=== PATIENT | female | born 1975 | race Two or more races ===

== ENCOUNTER 2017-06-25 06:38 | Emergency (ER) | payer OTHER ==
[~2017-06-25] VITALS: Ht 160 cm; Wt 108.9 kg
[2017-06-25] MEDS ORDERED: LORAZEPAM 2 MG/1 ML VIAL ONE (07:11)
[2017-06-25] MEDS ORDERED: LORAZEPAM 2 MG/1 ML VIAL IV ONE (07:30)
[2017-06-25 07:31] LABS: BASOPHILS # (AUTO) 0.1 K/uL (0.0-8.0); BASOPHILS % (AUTO) 0.6 % (0.0-2.0); EOSINOPHILS # (AUTO) 0.1 K/uL (0.0-0.7); EOSINOPHILS % (AUTO) 1.4 % (0.0-7.0); HEMATOCRIT 40.9 % (31.2-41.9); HEMOGLOBIN 13.7 g/dL (10.9-14.3); LYMPHOCYTES # (AUTO) 2.4 K/uL (20.0-40.0); LYMPHOCYTES % (AUTO) 26.5 % (20.5-51.5); MEAN CORPUSCULAR HEMOGLOBIN 28.4 uug (24.7-32.8); MEAN CORPUSCULAR HGB CONC 33 g/dL (32.3-35.6); MONOCYTES # (AUTO) 0.7 K/uL (2.0-10.0); MONOCYTES % (AUTO) 7.4 % (0.0-11.0); NEUTROPHILS # (AUTO) 5.8 K/uL (1.8-8.9); NEUTROPHILS % (AUTO) 64.1 % (38.5-71.5); PLATELET COUNT (AUTO) 262 K/uL (179-408); RED BLOOD CELL COUNT(AUTO) 4.81 MIL/uL (3.63-4.92)
[2017-06-25 07:41] LABS: CREATININE 0.9 mg/dL (0.6-1.3)
[2017-06-25 07:42] LABS: *BILIRUBIN,URIN NEGATIVE (NEGATIVE); *BLOOD, URINE Trace-lysed (NEGATIVE); *CLARITY,URINE CLEAR (CLEAR); *COLOR,URINE YELLOW (YELLOW); *KETONES,URINE NEGATIVE (NEGATIVE); *PROTEIN,URINE NEGATIVE (NEGATIVE); *UROBILINOGEN,URINE 0.2 E.U./dl (NORMAL); LEUKOCYTE ESTERASE ,URINE NEGATIVE (NEGATIVE); NITRITE, URINE NEGATIVE (NEGATIVE); UGLUCOSE NEGATIVE (NEGATIVE)
[2017-06-25 07:48] LABS: BACTERIA,URINE FEW /HPF (NONE SEEN); RBC,URINE 0-3 /HPF (0-3); SQUAMOUS EPITHELIAL CELL,UR FEW /HPF (NONE SEEN); WBC,URINE 0-3 /HPF (0-3)
[2017-06-25 07:53] LABS: BILIRUBIN,DIRECT 0.1 mg/dL (0.0-0.2); BILIRUBIN,TOTAL 0.3 mg/dL (0.2-1.0); TOTAL PROTEIN, SERUM 8.2 g/dL (6.4-8.2)
--- NOTE | 2017-06-25 10:08 | NUR ---
Patient discharged to home in stable conditon. Written and verbal after care instructions given. Patient verbalizes understanding of instructions.PT SAYS FEELS BETTER, PT WALKS IN STEADY GAIT, ACCOMPANIED BY , PT NOT DRIVING, COPY OF ALL THE STUDIES PROVIDED F OR PT TO FOLLOW UP.
[2017-06-25 10:10] VITALS: BP 139/77
== END 2017-06-25 10:10 | disposition home or self-care (01) ==
LOC: ER 06:44
DX: R07.89 Other chest pain (principal); Z91.010 Allergy to peanuts
CPT/HCPCS: 36415; 71045; 80048; 80076; 81001; 83880; 84484 ×2; 84703; 85025; 85379; 85730; 93005; 99285; A4663; J2060; 70030-TC; J7030

== ENCOUNTER 2022-07-08 06:38 | Emergency (ER) | payer OTHER ==
[~2022-07-08] VITALS: Ht 160 cm; Wt 95.3 kg
[2022-07-08] MEDS ORDERED: MORPHINE SULFATE 4 MG/1 ML DISP.SYRIN IV ONE (07:00)
[2022-07-08] MEDS ORDERED: FAMOTIDINE 20 MG TABLET PO ONE (07:00)
[2022-07-08] MEDS ORDERED: IV NORMAL SALINE 500 ML BAG IV ONE (07:00)
[2022-07-08] MEDS ORDERED: MAG HYDROX/AL HYDROX/SIMETH 30 ML LIQUID UDC PO ONE (07:00)
[2022-07-08] MEDS ORDERED: FAMO-132 PO (07:00)
[2022-07-08] MEDS ORDERED: FAMOTIDINE 20 MG TABLET ONE (07:05)
[2022-07-08] MEDS ORDERED: MAG HYDROX/AL HYDROX/SIMETH 30 ML LIQUID UDC ONE (07:05)
[2022-07-08] MEDS ORDERED: MORPHINE SULFATE 4 MG/1 ML DISP.SYRIN ONE (07:06)
--- NOTE | 2022-07-08 07:16 | NUR ---
Endorsed to Skye CORREA
[2022-07-08 07:17] LABS: HEMATOCRIT 40.8 % (31.2-41.9); MEAN CORPUSCULAR HEMOGLOBIN 28.3 uug (24.7-32.8); MEAN CORPUSCULAR VOLUME 85.6 fL (75.5-95.3); PLATELET COUNT (AUTO) 250 K/uL (179-408)
--- NOTE | 2022-07-08 07:22 | NUR ---
Received endorsedment from Keily CORREA.
--- NOTE | 2022-07-08 07:25 | NUR ---
Pt arrived in the ED with c/o upper abdominal pain, 11/04. Pt stated that it has been going on for 1 month, exhibiting loose bowel movements everyday. Denies headache, n/v, dizziness, hematochezia and hematuria. Seen by Dr. Ridley for MSE.
[2022-07-08 07:35] LABS: BILIRUBIN,TOTAL 0.4 mg/dL (0.2-1.0); CREATININE 0.7 mg/dL (0.6-1.3); POTASSIUM 3.7 mmol/L (3.5-5.1)
[2022-07-08 08:46] LABS: *BILIRUBIN,URIN NEGATIVE (NEGATIVE); *BLOOD, URINE 3+ (NEGATIVE); *CLARITY,URINE CLEAR (CLEAR); *COLOR,URINE YELLOW (YELLOW); *KETONES,URINE NEGATIVE (NEGATIVE); *UROBILINOGEN,URINE 0.2 E.U./dl (NORMAL); LEUKOCYTE ESTERASE ,URINE NEGATIVE (NEGATIVE); NITRITE, URINE NEGATIVE (NEGATIVE); PH,URINE 7.5 (5.0-8.0); UGLUCOSE NEGATIVE (NEGATIVE)
[2022-07-08 08:50] LABS: *URINE HCG, QUAL NEG (NEGATIVE)
[2022-07-08] MEDS ORDERED: HALOPERIDOL LACTATE 5 MG/1 ML VIAL ONE (08:56)
[2022-07-08] MEDS ORDERED: HALOPERIDOL LACTATE 5 MG/1 ML VIAL IV ONE (09:00)
--- NOTE | 2022-07-08 09:00 | NUR ---
Patient discharged to home in stable condition. Written and verbal after care instructions given. Patient verbalizes understanding of instructions. Stressed follow up or return to ER for worsening s/s.
[2022-07-08 09:33] VITALS: BP 129/78
[2022-07-08 12:07] LABS: BACTERIA,URINE FEW /HPF (NONE SEEN); SQUAMOUS EPITHELIAL CELL,UR FEW /HPF (NONE SEEN); WBC,URINE 0-3 /HPF (0-3)
== END 2022-07-08 09:05 | disposition home or self-care (01) ==
LOC: ER 06:39
DX: K29.70 Gastritis, unspecified, without bleeding (principal); Z88.0 Allergy status to penicillin; Z91.010 Allergy to peanuts
CPT/HCPCS: 99284; 96374; 96361; 96375; 80053; 81001; 84703; 83690; 85025; 84484; 36415; J1630; J2270; J7040